=== PATIENT | female | born 1940 | race Caucasian/White ===

== ENCOUNTER 2019-04-12 11:15 | Inpatient (IN) | payer MEDICARE, OTHER ==
[2019-04-12] MEDS ORDERED: ONDANSETRON 4 MG INJ IV (12:30)
[2019-04-12] MEDS: ACETAMINOPHEN 650MG/20.3ML CUP GTB (12:47)
[2019-04-12] MEDS ORDERED: ARTIFICIAL TEARS 15 ML OPH BOTH EYES (13:00)
[2019-04-12] MEDS ORDERED: GLUCOSE GEL 15 GRAM TUBE BUCCAL (13:00)
[2019-04-12] MEDS ORDERED: GLUCAGON 1 MG INJ IM (13:00)
[2019-04-12] MEDS ORDERED: GLUCOSE GEL 15 GRAM TUBE PO ×2 (13:00)
[2019-04-12] MEDS ORDERED: DEXTROSE 50% 50 ML SYRINGE IV ×2 (13:00)
[2019-04-12] MEDS ORDERED: VANCOMYCIN IV PER PHARMACY XX (13:00)
[2019-04-12 13:55] LABS: ADD MAN DIFF? NO
[2019-04-12 13:59] LABS: ABNORMAL IP MESSAGE 1; BASOPHILS % 0.2 % (0.0-2.0); EOSINOPHILS % 0.1 % (0.0-7.0); HEMOGLOBIN 8.4 g/dl (12.0-16.0); LYMPHOCYTES # 1.4 10^3/ul (0.8-2.9); LYMPHOCYTES % 16.9 % (15.0-51.0); MEAN CORPUSCULAR HEMOGLOBIN 30.4 pg (29.0-33.0); MEAN CORPUSCULAR HGB CONC 31.1 g/dl (32.0-37.0); MEAN CORPUSCULAR VOLUME 97.8 fl (82.0-101.0); MEAN PLATELET VOLUME 11.8 fl (7.4-10.4); MONOCYTE # 0.5 10^3/ul (0.3-0.9); MONOCYTES % 6.1 % (0.0-11.0); NEUTROPHIL # 6.2 10^3/ul (1.6-7.5); NEUTROPHILS % 75.2 % (39.0-77.0); PLATELET COUNT 95 10^3/UL (140-415); RED BLOOD COUNT 2.76 10^6/ul (4.20-5.40); RED CELL DISTRIBUTION WIDTH 20.1 % (11.5-14.5)
[2019-04-12 13:59] LABS: WHITE BLOOD COUNT 8.2 10^3/ul (4.8-10.8)
[2019-04-12] MEDS ORDERED: VANCOMYCIN HCL 250 MG/5ML POSYG PO (14:00)
[2019-04-12] MEDS: NYSTATIN SUSP 5 ML CUP GTB ×3 (14:01→20:44)
[2019-04-12 14:05] LABS: POSITIVE DIFF @See below
[2019-04-12 14:18] LABS: INR 1.05; PROTIME 13.8 Sec (11.9-14.9); PT RATIO 1.1
[2019-04-12 14:19] LABS: PARTIAL THROMBOPLASTIN TIME 26.8 Sec (23.0-35.0)
[2019-04-12] MEDS: INSULIN ASPART [NOVOLOG] 3 ML PEN SC ×3 (14:38→20:47)
[2019-04-12] MEDS: GABAPENTIN (50 MG/ML PO SYG) GTB ×2 (14:39→22:03)
[2019-04-12 14:49] LABS: ANISOCYTOSIS 2+ (0-0); BAND NEUTROPHILS #M 1.7 10^3/ul (0.0-0.6); BAND NEUTROPHILS % (M) 21 % (0-4); GIANT THROMBO% (M) 2 % (0-0); LYMPHOCYTES #M 1.4 10^3/ul (0.8-2.9); LYMPHOCYTES % (M) 18 % (15-51); MICROCYTOSIS 2+ (0-0); MONOCYTE #M 0.1 10^3/ul (0.3-0.9); MONOCYTES % (M) 2 % (0-11); MYELOCYTES % (M) 1 % (0-0); PLATELET ESTIMATE DECREASED; POIKILOCYTOSIS 1+ (0-0); POLYCHROMASIA 3+ (0-0); SEG NEUT #M 4.9 10^3/ul (1.6-7.5); SEGMENTED NEUTROPHILS (M) % 58 % (39-77); SMUDGE%M 9 % (0-0)
[2019-04-12] MEDS: LANSOPRAZOLE 30 MG CAP GTB (18:06)
[2019-04-12] MEDS: VANCOMYCIN HCL 250 MG/5ML POSYG GTB (18:07)
[2019-04-12] MEDS: traMADol 50 MG TAB PO (18:09)
[2019-04-12] MEDS: COLISTIMETHATE (25 MG/ML INHAL SYG) NEB (20:19)
[2019-04-12] MEDS: BALSAM PERU/CASTOR OIL 60 GM TUBE TOP (20:43)
[2019-04-12] MEDS: MUPIROCIN 2% 22 GM OINT TOP (20:43)
[2019-04-12] MEDS: NYSTATIN 30 GM POWDER BTL TOP (20:44)
[2019-04-12] MEDS: HYDROCORTISONE 5 MG TAB GTB (20:44)
[2019-04-12] MEDS: L ACIDOPHIL/B LACTIS/B LONGUM CAPSULE GTB (20:44)
[2019-04-12] MEDS: DOCUSATE SODIUM 10 MG/ML (10ML CUP) GTB ×2 (20:44→20:49)
[2019-04-12] MEDS: ATORVASTATIN 40 MG TAB GTB (20:45)
[2019-04-12] MEDS: HYDROXYCHLOROQUINE 200 MG TAB GTB (20:45)
[2019-04-12] MEDS: INSULIN GLARGINE [LANTus] (100 UNITS/ML) SYG SC (20:46)
[2019-04-13] MEDS: VANCOMYCIN HCL 250 MG/5ML POSYG GTB ×4 (00:26→18:26)
[2019-04-13] MEDS: INSULIN ASPART [NOVOLOG] 3 ML PEN SC ×6 (00:31→21:00)
[2019-04-13] MEDS: GABAPENTIN (50 MG/ML PO SYG) GTB ×3 (06:06→21:28)
[2019-04-13] MEDS: LANSOPRAZOLE 30 MG CAP GTB ×2 (06:06→18:26)
[2019-04-13] MEDS: FUROSEMIDE 40 MG INJ IV (06:06)
[2019-04-13 08:41] LABS: ADD MAN DIFF? NO
[2019-04-13 08:56] LABS: AADO2 Arterial 175.7 mmHg (7.0-24.0); Allen Test ACCEPTAB; Arterial Base Excess 0.2 mmol/L (-3.0-3); Arterial Blood Gas Oxygen Sat 93.8 mmHG (95.0-100.0); Arterial COHb 0.3 % (0.0-3.0); Arterial Fraction of Oxyhgb 93.2 % (93.0-99.0); Arterial HCO3 24.2 mmol/L (22.0-26.0); Arterial MetHb 0.3 % (0.0-1.5); Arterial pCO2 36.5 mmhg (35-45); MODE VENT - AC; Site Left Radial
[2019-04-13] MEDS: DOCUSATE SODIUM 10 MG/ML (10ML CUP) GTB ×2 (08:58→21:23)
[2019-04-13] MEDS ORDERED: VANCOMYCIN HCL 1.5 GM in SOD CHLORIDE 0.9% 250 ML IVPB (09:00)
[2019-04-13] MEDS: L ACIDOPHIL/B LACTIS/B LONGUM CAPSULE GTB ×2 (09:00→21:23)
[2019-04-13] MEDS: HYDROXYCHLOROQUINE 200 MG TAB GTB ×2 (09:00→21:23)
[2019-04-13 09:08] LABS: ANION GAP 8 (5-13); BLOOD UREA NITROGEN 42 mg/dl (7-20); CALCIUM 9.2 mg/dl (8.4-10.2); CARBON DIOXIDE 22 mmol/L (21-31); CHLORIDE 107 mmol/L (97-110); CREATININE 0.82 mg/dl (0.44-1.00); GLUCOSE 157 mg/dl (70-220); MAGNESIUM 1.9 mg/dl (1.7-2.5); PHOSPHORUS 3.7 mg/dl (2.5-4.9); POTASSIUM 4.6 mmol/L (3.5-5.1); SODIUM 137 mmol/L (135-144)
[2019-04-13] MEDS: SERTRALINE 50 MG TAB GTB (09:09)
[2019-04-13] MEDS: NYSTATIN SUSP 5 ML CUP GTB ×4 (09:09→21:23)
[2019-04-13] MEDS: AMLODIPINE 5 MG TAB GTB (09:09)
[2019-04-13 09:10] LABS: VANCOMYCIN,TROUGH 30.7 ug/ml (10.0-20.0)
[2019-04-13] MEDS: HYDROCORTISONE 20 MG TAB GTB (09:10)
[2019-04-13] MEDS: POTASSIUM CHLORIDE 20 MEQ POWDER FOR ORAL SOLN GTB (09:10)
[2019-04-13] MEDS: MUPIROCIN 2% 22 GM OINT TOP ×2 (09:11→21:29)
[2019-04-13] MEDS: NYSTATIN 30 GM POWDER BTL TOP (09:12)
[2019-04-13] MEDS: BALSAM PERU/CASTOR OIL 60 GM TUBE TOP ×2 (09:12→21:29)
[2019-04-13] MEDS: LIDOCAINE 5% PATCH TD (09:13)
[2019-04-13 09:38] LABS: ABNORMAL IP MESSAGE 1; BASOPHILS % 0.3 % (0.0-2.0); EOSINOPHILS % 0.1 % (0.0-7.0); HEMATOCRIT 28.8 % (37.0-47.0); HEMOGLOBIN 8.9 g/dl (12.0-16.0); LYMPHOCYTES # 2.2 10^3/ul (0.8-2.9); LYMPHOCYTES % 28.9 % (15.0-51.0); MEAN CORPUSCULAR HEMOGLOBIN 30.5 pg (29.0-33.0); MEAN CORPUSCULAR HGB CONC 30.9 g/dl (32.0-37.0); MEAN CORPUSCULAR VOLUME 98.6 fl (82.0-101.0); MEAN PLATELET VOLUME 11.5 fl (7.4-10.4); MONOCYTE # 0.5 10^3/ul (0.3-0.9); NEUTROPHIL # 4.8 10^3/ul (1.6-7.5); NEUTROPHILS % 62.4 % (39.0-77.0); PLATELET COUNT 90 10^3/UL (140-415); RED BLOOD COUNT 2.92 10^6/ul (4.20-5.40); RED CELL DISTRIBUTION WIDTH 19.9 % (11.5-14.5)
[2019-04-13 09:38] LABS: WHITE BLOOD COUNT 7.7 10^3/ul (4.8-10.8)
[2019-04-13 09:40] LABS: POSITIVE DIFF @See below
[2019-04-13] MEDS: COLISTIMETHATE (25 MG/ML INHAL SYG) NEB ×2 (09:41→19:15)
[2019-04-13 10:22] LABS: ADD UMIC YES; UR ASCORBIC ACID 40 mg/dL (NEGATIVE); UR BACTERIA FEW /HPF (NONE SEEN); UR BILIRUBIN (Dip) NEGATIVE (NEGATIVE); UR BLOOD (Dip) NEGATIVE (NEGATIVE); UR BUDDING YEAST MANY /HPF (NONE SEEN); UR CLARITY SLIGHTLY CLOUDY (CLEAR); UR COLOR YELLOW (YELLOW); UR GLUCOSE (Dip) NEGATIVE (NEGATIVE); UR GRANULAR CAST FEW /HPF (NONE SEEN); UR KETONES (Dip) NEGATIVE (NEGATIVE); UR LEUKOCYTE ESTERASE (Dip) 1+ Leu/ul (NEGATIVE); UR MUCUS FEW /HPF (NONE SEEN); UR NITRITE (Dip) NEGATIVE (NEGATIVE); UR RBC 11 /HPF (0-5); UR SPECIFIC GRAVITY (Dip) 1.018 (1.003-1.030); UR TOTAL PROTEIN (Dip) NEGATIVE (NEGATIVE); UR UROBILINOGEN (Dip) NEGATIVE (NEGATIVE); UR WBC 32 /HPF (0-5)
[2019-04-13] MEDS: traMADol 50 MG TAB PO (11:48)
[2019-04-13] MEDS: FLUCONAZOLE 100 MG TAB PO (14:51)
[2019-04-13] MEDS ORDERED: INSULIN GLARGINE [LANTus] (100 UNITS/ML) SYG SC (15:00)
[2019-04-13] MEDS: HYDROCODONE/APAP (10/325) TAB GTB (15:20)
[2019-04-13] MEDS ORDERED: MAGNESIUM HYDROXIDE 30ML CUP PO (21:00)
[2019-04-13] MEDS: PROPOFOL 100 ML IV (21:22)
[2019-04-13] MEDS: ATORVASTATIN 40 MG TAB GTB (21:23)
[2019-04-13] MEDS: HYDROCORTISONE 5 MG TAB GTB (21:23)
[2019-04-13] MEDS: INSULIN GLARGINE [LANTus] (100 UNITS/ML) SYG SC (21:25)
[2019-04-14] MEDS: NYSTATIN 30 GM POWDER BTL TOP ×3 (00:01→20:22)
[2019-04-14] MEDS: PROPOFOL 100 ML IV ×3 (00:13→09:05)
[2019-04-14] MEDS: INSULIN ASPART [NOVOLOG] 3 ML PEN SC ×6 (01:00→21:00)
[2019-04-14 05:31] LABS: MEAN CORPUSCULAR HEMOGLOBIN 30.5 pg (29.0-33.0); MEAN CORPUSCULAR HGB CONC 30.8 g/dl (32.0-37.0); MEAN CORPUSCULAR VOLUME 99.2 fl (82.0-101.0); MEAN PLATELET VOLUME 11.4 fl (7.4-10.4); PLATELET COUNT 105 10^3/UL (140-415); RED BLOOD COUNT 2.62 10^6/ul (4.20-5.40); RED CELL DISTRIBUTION WIDTH 20.7 % (11.5-14.5)
[2019-04-14 05:31] LABS: WHITE BLOOD COUNT 8.7 10^3/ul (4.8-10.8)
[2019-04-14 05:33] LABS: AADO2 Arterial 180.9 mmHg (7.0-24.0); Allen Test ACCEPTAB; Arterial Base Excess -0.7 mmol/L (-3.0-3); Arterial Blood Gas Oxygen Sat 92.8 mmHG (95.0-100.0); Arterial COHb 0.3 % (0.0-3.0); Arterial Fraction of Oxyhgb 92.2 % (93.0-99.0); Arterial HCO3 23.2 mmol/L (22.0-26.0); Arterial MetHb 0.3 % (0.0-1.5); Arterial pCO2 35.1 mmhg (35-45); MODE VENT - AC; Site Right Radial
[2019-04-14 05:35] LABS: ADD MAN DIFF? YES; POSITIVE DIFF @See below
[2019-04-14 05:58] LABS: LACTIC ACID 1.7 mmol/L (0.5-2.0); VANCOMYCIN,RANDOM 20.9 ug/ml
[2019-04-14 06:14] LABS: ANION GAP 4 (5-13); BLOOD UREA NITROGEN 46 mg/dl (7-20); CARBON DIOXIDE 27 mmol/L (21-31); CHLORIDE 106 mmol/L (97-110); CREATININE 1.13 mg/dl (0.44-1.00); GLUCOSE 106 mg/dl (70-220); MAGNESIUM 1.9 mg/dl (1.7-2.5); PHOSPHORUS 3.1 mg/dl (2.5-4.9); POTASSIUM 5.2 mmol/L (3.5-5.1); SODIUM 137 mmol/L (135-144)
[2019-04-14] MEDS: LANSOPRAZOLE 30 MG CAP GTB ×2 (06:27→18:31)
[2019-04-14] MEDS: FUROSEMIDE 40 MG INJ IV (06:27)
[2019-04-14] MEDS: GABAPENTIN (50 MG/ML PO SYG) GTB ×3 (06:36→21:27)
[2019-04-14] MEDS: VANCOMYCIN HCL 250 MG/5ML POSYG GTB ×4 (06:43→18:32)
[2019-04-14 08:00] LABS: ANISOCYTOSIS 1+ (0-0); BAND NEUTROPHILS #M 0.6 10^3/ul (0.0-0.6); BAND NEUTROPHILS % (M) 8 % (0-4); BURR CELLS 1+ (0-0); EOSINOPHILS % (M) 1 % (0-7); GIANT THROMBO% (M) 1 % (0-0); LYMPHOCYTES #M 1.6 10^3/ul (0.8-2.9); LYMPHOCYTES % (M) 19 % (15-51); MICROCYTOSIS 1+ (0-0); MONOCYTE #M 0.2 10^3/ul (0.3-0.9); MONOCYTES % (M) 3 % (0-11); PLATELET ESTIMATE DECREASED; POIKILOCYTOSIS 1+ (0-0); POLYCHROMASIA 1+ (0-0); REACTIVE LYMPHOCYTES #M 0.2 10^3/ul (0.0-0.0); REACTIVE LYMPHOCYTES% (M) 3 % (0-0); SEG NEUT #M 5.8 10^3/ul (1.6-7.5); SEGMENTED NEUTROPHILS (M) % 66 % (39-77); SMUDGE%M 14 % (0-0)
[2019-04-14] MEDS ORDERED: INSULIN GLARGINE [LANTus] (100 UNITS/ML) SYG SC (08:00)
[2019-04-14] MEDS: COLISTIMETHATE (25 MG/ML INHAL SYG) NEB ×2 (08:58→19:25)
[2019-04-14] MEDS: AMLODIPINE 5 MG TAB GTB (09:00)
[2019-04-14] MEDS: POTASSIUM CHLORIDE 20 MEQ POWDER FOR ORAL SOLN GTB (09:00)
[2019-04-14] MEDS: NYSTATIN SUSP 5 ML CUP GTB ×4 (09:05→20:21)
[2019-04-14] MEDS: DOCUSATE SODIUM 10 MG/ML (10ML CUP) GTB ×2 (09:05→20:21)
[2019-04-14] MEDS: SERTRALINE 50 MG TAB GTB (09:06)
[2019-04-14] MEDS: HYDROCORTISONE 20 MG TAB GTB (09:06)
[2019-04-14] MEDS: FLUCONAZOLE 100 MG TAB PO (09:06)
[2019-04-14] MEDS: MUPIROCIN 2% 22 GM OINT TOP ×2 (09:07→20:22)
[2019-04-14] MEDS: BALSAM PERU/CASTOR OIL 60 GM TUBE TOP ×2 (09:07→20:22)
[2019-04-14] MEDS: HYDROXYCHLOROQUINE 200 MG TAB GTB ×2 (09:07→20:34)
[2019-04-14] MEDS: LIDOCAINE 5% PATCH TD (09:08)
[2019-04-14] MEDS: L ACIDOPHIL/B LACTIS/B LONGUM CAPSULE GTB ×2 (10:54→20:21)
[2019-04-14] MEDS ORDERED: NORepinephrine 8MG/250 ML (PMX 250 ML IV (11:30)
[2019-04-14] MEDS: SOD CHLORIDE 0.9% 1,000 ML IV ×3 (11:50→21:46)
[2019-04-14] MEDS ORDERED: NA POLYST SULFON 15 GM/60 ML BTL GTB (12:00)
[2019-04-14] MEDS: SODIUM POLYSTYRENE 15 GM KIT (POWDER + SORBITOL) GTB (14:00)
[2019-04-14 14:09] LABS: ADD UMIC YES; UR ASCORBIC ACID 20 mg/dL (NEGATIVE); UR BACTERIA FEW /HPF (NONE SEEN); UR BILIRUBIN (Dip) NEGATIVE (NEGATIVE); UR BLOOD (Dip) 1+ mg/dL (NEGATIVE); UR CLARITY SLIGHTLY CLOUDY (CLEAR); UR COLOR YELLOW (YELLOW); UR GLUCOSE (Dip) NEGATIVE (NEGATIVE); UR KETONES (Dip) NEGATIVE (NEGATIVE); UR LEUKOCYTE ESTERASE (Dip) TRACE Leu/ul (NEGATIVE); UR NITRITE (Dip) NEGATIVE (NEGATIVE); UR RBC 25 /HPF (0-5); UR SPECIFIC GRAVITY (Dip) 1.011 (1.003-1.030); UR TOTAL PROTEIN (Dip) NEGATIVE (NEGATIVE); UR UROBILINOGEN (Dip) NEGATIVE (NEGATIVE); UR WBC 8 /HPF (0-5)
[2019-04-14 14:17] LABS: SODIUM,URINE RANDOM 44 mmol/L (30-90)
[2019-04-14 14:17] LABS: CREATININE,URINE RANDOM 34.77 mg/dl (20-320)
[2019-04-14] MEDS: INSULIN GLARGINE [LANTus] (100 UNITS/ML) SYG SC (20:20)
[2019-04-14] MEDS: ATORVASTATIN 40 MG TAB GTB (20:21)
[2019-04-14] MEDS: HYDROCORTISONE 5 MG TAB GTB (20:34)
[2019-04-14] MEDS ORDERED: MUPIROCIN 2% 22 GM OINT TOP (21:00)
[2019-04-15] MEDS: INSULIN ASPART [NOVOLOG] 3 ML PEN SC ×6 (01:51→21:00)
[2019-04-15] MEDS: VANCOMYCIN HCL 250 MG/5ML POSYG GTB ×4 (01:51→18:39)
[2019-04-15 05:34] LABS: HEMATOCRIT 23.6 % (37.0-47.0); HEMOGLOBIN 7.5 g/dl (12.0-16.0); MEAN CORPUSCULAR HEMOGLOBIN 31.1 pg (29.0-33.0); MEAN CORPUSCULAR HGB CONC 31.8 g/dl (32.0-37.0); MEAN CORPUSCULAR VOLUME 97.9 fl (82.0-101.0); MEAN PLATELET VOLUME 10.9 fl (7.4-10.4); PLATELET COUNT 112 10^3/UL (140-415); RED BLOOD COUNT 2.41 10^6/ul (4.20-5.40); RED CELL DISTRIBUTION WIDTH 20.4 % (11.5-14.5)
[2019-04-15 05:34] LABS: WHITE BLOOD COUNT 8.3 10^3/ul (4.8-10.8)
[2019-04-15 05:42] LABS: ADD MAN DIFF? YES; POSITIVE DIFF @See below
[2019-04-15] MEDS: GABAPENTIN (50 MG/ML PO SYG) GTB ×3 (05:47→21:01)
[2019-04-15] MEDS: LANSOPRAZOLE 30 MG CAP GTB ×2 (05:47→18:00)
[2019-04-15 05:59] LABS: ANION GAP 7 (5-13)
[2019-04-15 06:00] LABS: BLOOD UREA NITROGEN 46 mg/dl (7-20); CALCIUM 8.3 mg/dl (8.4-10.2); CARBON DIOXIDE 24 mmol/L (21-31); CHLORIDE 107 mmol/L (97-110); CREATININE 1.01 mg/dl (0.44-1.00); GLUCOSE 122 mg/dl (70-220); MAGNESIUM 1.8 mg/dl (1.7-2.5); PHOSPHORUS 3.7 mg/dl (2.5-4.9); SODIUM 138 mmol/L (135-144)
[2019-04-15 06:01] LABS: POTASSIUM 3.8 mmol/L (3.5-5.1)
[2019-04-15 07:20] LABS: ANISOCYTOSIS 1+ (0-0); BURR CELLS 1+ (0-0); GIANT THROMBO% (M) 4 % (0-0); LYMPHOCYTES #M 2.4 10^3/ul (0.8-2.9); LYMPHOCYTES % (M) 30 % (15-51); MONOCYTE #M 0.1 10^3/ul (0.3-0.9); MONOCYTES % (M) 2 % (0-11); PLATELET ESTIMATE DECREASED; POIKILOCYTOSIS 1+ (0-0); POLYCHROMASIA 1+ (0-0); SEGMENTED NEUTROPHILS (M) % 68 % (39-77); SMUDGE%M 10 % (0-0); TOXIC GRANULATION 1+ (0-0)
[2019-04-15] MEDS: FLUCONAZOLE 100 MG TAB PO (08:08)
[2019-04-15] MEDS: DOCUSATE SODIUM 10 MG/ML (10ML CUP) GTB ×2 (08:08→20:57)
[2019-04-15] MEDS: HYDROXYCHLOROQUINE 200 MG TAB GTB ×2 (08:08→20:55)
[2019-04-15] MEDS: HYDROCORTISONE 20 MG TAB GTB (08:08)
[2019-04-15] MEDS: SERTRALINE 50 MG TAB GTB (08:08)
[2019-04-15] MEDS: POTASSIUM CHLORIDE 20 MEQ POWDER FOR ORAL SOLN GTB (08:09)
[2019-04-15] MEDS: MUPIROCIN 2% 22 GM OINT TOP ×2 (08:09→20:56)
[2019-04-15] MEDS: BALSAM PERU/CASTOR OIL 60 GM TUBE TOP ×2 (08:09→20:56)
[2019-04-15] MEDS: NYSTATIN 30 GM POWDER BTL TOP ×2 (08:10→20:56)
[2019-04-15] MEDS: NYSTATIN SUSP 5 ML CUP GTB ×4 (08:10→20:55)
[2019-04-15] MEDS: L ACIDOPHIL/B LACTIS/B LONGUM CAPSULE GTB ×2 (08:15→20:55)
[2019-04-15] MEDS: COLISTIMETHATE (25 MG/ML INHAL SYG) NEB ×2 (09:51→21:14)
[2019-04-15] MEDS: LORAZEPAM 2 MG INJ IV ×2 (11:05→22:30)
[2019-04-15] MEDS: VANCOMYCIN HCL 1.5 GM in SOD CHLORIDE 0.9% 250 ML IVPB (13:08)
[2019-04-15] MEDS: SOD CHLORIDE 0.9% 1,000 ML IV (18:40)
[2019-04-15] MEDS: PROPOFOL 100 ML IV (20:00)
[2019-04-15] MEDS: ATORVASTATIN 40 MG TAB GTB (20:55)
[2019-04-15] MEDS: HYDROCORTISONE 5 MG TAB GTB (20:55)
[2019-04-15] MEDS: LIDOCAINE 5% PATCH TD (21:09)
[2019-04-15] MEDS: INSULIN GLARGINE [LANTus] (100 UNITS/ML) SYG SC (21:15)
[2019-04-16] MEDS: INSULIN ASPART [NOVOLOG] 3 ML PEN SC ×6 (00:25→20:35)
[2019-04-16] MEDS: VANCOMYCIN HCL 250 MG/5ML POSYG GTB ×5 (00:26→23:59)
[2019-04-16] MEDS: LORAZEPAM 2 MG INJ IV ×3 (03:35→21:28)
[2019-04-16] MEDS: LANSOPRAZOLE 30 MG CAP GTB ×2 (05:35→18:01)
[2019-04-16] MEDS: GABAPENTIN (50 MG/ML PO SYG) GTB ×3 (05:35→20:39)
[2019-04-16 05:42] LABS: ADD MAN DIFF? NO
[2019-04-16 05:45] LABS: WHITE BLOOD COUNT 7.6 10^3/ul (4.8-10.8)
[2019-04-16 05:45] LABS: BASOPHILS % 0.4 % (0.0-2.0); EOSINOPHILS % 0.1 % (0.0-7.0); HEMATOCRIT 23.7 % (37.0-47.0); HEMOGLOBIN 7.4 g/dl (12.0-16.0); LYMPHOCYTES # 1.7 10^3/ul (0.8-2.9); LYMPHOCYTES % 21.7 % (15.0-51.0); MEAN CORPUSCULAR HEMOGLOBIN 30.7 pg (29.0-33.0); MEAN CORPUSCULAR HGB CONC 31.2 g/dl (32.0-37.0); MEAN CORPUSCULAR VOLUME 98.3 fl (82.0-101.0); MEAN PLATELET VOLUME 10.7 fl (7.4-10.4); MONOCYTE # 0.4 10^3/ul (0.3-0.9); MONOCYTES % 5.1 % (0.0-11.0); NEUTROPHIL # 5.2 10^3/ul (1.6-7.5); NEUTROPHILS % 68.2 % (39.0-77.0); PLATELET COUNT 130 10^3/UL (140-415); RED BLOOD COUNT 2.41 10^6/ul (4.20-5.40); RED CELL DISTRIBUTION WIDTH 20.1 % (11.5-14.5)
[2019-04-16 06:24] LABS: RETICULOCYTE COUNT # 0.105 X10^6 (0.020-0.110); RETICULOCYTE COUNT % 4.3 % (0.5-1.5)
[2019-04-16 06:24] LABS: RETICULOCYTE RBC 2.48
[2019-04-16 06:32] LABS: ANION GAP 7 (5-13); BLOOD UREA NITROGEN 37 mg/dl (7-20); CALCIUM 8.6 mg/dl (8.4-10.2); CARBON DIOXIDE 21 mmol/L (21-31); CHLORIDE 111 mmol/L (97-110); CREATININE 0.89 mg/dl (0.44-1.00); GLUCOSE 156 mg/dl (70-220); MAGNESIUM 1.7 mg/dl (1.7-2.5); PHOSPHORUS 3.5 mg/dl (2.5-4.9); POTASSIUM 4.1 mmol/L (3.5-5.1); SODIUM 139 mmol/L (135-144)
[2019-04-16 06:33] LABS: BILIRUBIN,INDIRECT 0.6 mg/dl (0-1.1); BILIRUBIN,TOTAL 0.6 mg/dl (0.2-1.3)
[2019-04-16 06:33] LABS: LACTATE DEHYDROGENASE 899 IU/L (313-618)
[2019-04-16] MEDS: SOD CHLORIDE 0.9% 1,000 ML IV (06:34)
[2019-04-16] MEDS: PROPOFOL 100 ML IV ×2 (08:00→20:00)
[2019-04-16] MEDS: MUPIROCIN 2% 22 GM OINT TOP ×2 (08:36→20:37)
[2019-04-16] MEDS: BALSAM PERU/CASTOR OIL 60 GM TUBE TOP ×2 (08:36→20:37)
[2019-04-16] MEDS: NYSTATIN 30 GM POWDER BTL TOP ×2 (08:36→20:37)
[2019-04-16] MEDS: POTASSIUM CHLORIDE 20 MEQ POWDER FOR ORAL SOLN GTB (08:59)
[2019-04-16] MEDS: HYDROCORTISONE 20 MG TAB GTB (08:59)
[2019-04-16] MEDS: DOCUSATE SODIUM 10 MG/ML (10ML CUP) GTB ×2 (08:59→20:36)
[2019-04-16] MEDS: FLUCONAZOLE 100 MG TAB PO (08:59)
[2019-04-16] MEDS: SERTRALINE 50 MG TAB GTB (08:59)
[2019-04-16] MEDS: HYDROXYCHLOROQUINE 200 MG TAB GTB ×2 (08:59→20:20)
[2019-04-16] MEDS: L ACIDOPHIL/B LACTIS/B LONGUM CAPSULE GTB ×2 (09:10→20:20)
[2019-04-16] MEDS: LIDOCAINE 5% PATCH TD (09:11)
[2019-04-16] MEDS: COLISTIMETHATE (25 MG/ML INHAL SYG) NEB ×2 (09:35→19:56)
[2019-04-16] MEDS: NYSTATIN SUSP 5 ML CUP GTB ×4 (09:38→20:39)
[2019-04-16 10:09] LABS: IRON 48 ug/dl (35-150)
[2019-04-16 10:19] LABS: % IRON SATURATION 22 % SAT (22-52); TOTAL IRON BINDING CAPACITY 216 ug/dl (241-421)
[2019-04-16] MEDS: HYDROCODONE/APAP (10/325) TAB GTB (17:58)
[2019-04-16] MEDS: ATORVASTATIN 40 MG TAB GTB (20:20)
[2019-04-16] MEDS: HYDROCORTISONE 5 MG TAB GTB (20:20)
[2019-04-16] MEDS: INSULIN GLARGINE [LANTus] (100 UNITS/ML) SYG SC (20:36)
[2019-04-17] MEDS: INSULIN ASPART [NOVOLOG] 3 ML PEN SC ×6 (00:01→20:26)
[2019-04-17] MEDS: LANSOPRAZOLE 30 MG CAP GTB ×2 (05:15→18:12)
[2019-04-17] MEDS: GABAPENTIN (50 MG/ML PO SYG) GTB ×3 (05:15→20:25)
[2019-04-17 05:16] LABS: ABNORMAL IP MESSAGE 1; HEMATOCRIT 25.8 % (37.0-47.0); HEMOGLOBIN 7.8 g/dl (12.0-16.0); MEAN CORPUSCULAR HGB CONC 30.2 g/dl (32.0-37.0); MEAN CORPUSCULAR VOLUME 99.2 fl (82.0-101.0); MEAN PLATELET VOLUME 11.7 fl (7.4-10.4); NUCLEATED RED BLOOD CELLS% 0.3 /100WBC (0.0-0.0); PLATELET COUNT 65 10^3/UL (140-415); RED CELL DISTRIBUTION WIDTH 20.6 % (11.5-14.5)
[2019-04-17 05:16] LABS: WHITE BLOOD COUNT 7.8 10^3/ul (4.8-10.8)
[2019-04-17] MEDS: VANCOMYCIN HCL 250 MG/5ML POSYG GTB ×3 (05:19→18:32)
[2019-04-17 05:23] LABS: ADD MAN DIFF? YES; POSITIVE DIFF @See below
[2019-04-17 05:57] LABS: ANION GAP 4 (5-13); BLOOD UREA NITROGEN 34 mg/dl (7-20); CALCIUM 9.1 mg/dl (8.4-10.2); CARBON DIOXIDE 23 mmol/L (21-31); CHLORIDE 111 mmol/L (97-110); CREATININE 0.79 mg/dl (0.44-1.00); GLUCOSE 129 mg/dl (70-220); MAGNESIUM 1.8 mg/dl (1.7-2.5); PHOSPHORUS 3.7 mg/dl (2.5-4.9); SODIUM 138 mmol/L (135-144)
[2019-04-17] MEDS: PROPOFOL 100 ML IV ×2 (08:00→20:00)
[2019-04-17] MEDS: DOCUSATE SODIUM 10 MG/ML (10ML CUP) GTB ×2 (09:00→20:26)
[2019-04-17] MEDS: HYDROCORTISONE 20 MG TAB GTB (09:19)
[2019-04-17] MEDS: HYDROXYCHLOROQUINE 200 MG TAB GTB ×2 (09:20→20:25)
[2019-04-17] MEDS: POTASSIUM CHLORIDE 20 MEQ POWDER FOR ORAL SOLN GTB (09:20)
[2019-04-17] MEDS: FLUCONAZOLE 100 MG TAB PO (09:20)
[2019-04-17] MEDS: SERTRALINE 50 MG TAB GTB (09:20)
[2019-04-17] MEDS: NYSTATIN SUSP 5 ML CUP GTB ×4 (09:20→20:25)
[2019-04-17] MEDS: L ACIDOPHIL/B LACTIS/B LONGUM CAPSULE GTB ×2 (09:20→20:25)
[2019-04-17] MEDS: MUPIROCIN 2% 22 GM OINT TOP ×2 (09:21→20:24)
[2019-04-17] MEDS: BALSAM PERU/CASTOR OIL 60 GM TUBE TOP ×2 (09:21→20:24)
[2019-04-17] MEDS: NYSTATIN 30 GM POWDER BTL TOP ×2 (09:21→20:25)
[2019-04-17] MEDS: LIDOCAINE 5% PATCH TD (09:23)
[2019-04-17] MEDS: traMADol 50 MG TAB PO (10:21)
[2019-04-17] MEDS: COLISTIMETHATE (25 MG/ML INHAL SYG) NEB ×2 (10:36→19:32)
[2019-04-17] MEDS: LORAZEPAM 2 MG INJ IV ×2 (12:36→21:04)
[2019-04-17] MEDS: VANCOMYCIN HCL 1.5 GM in SOD CHLORIDE 0.9% 250 ML IVPB (12:36)
[2019-04-17 17:16] LABS: HAPTOGLOBIN 247 mg/dL (43-212)
[2019-04-17] MEDS: HYDROCORTISONE 5 MG TAB GTB (20:25)
[2019-04-17] MEDS: ATORVASTATIN 40 MG TAB GTB (20:25)
[2019-04-17] MEDS: INSULIN GLARGINE [LANTus] (100 UNITS/ML) SYG SC (20:34)
[2019-04-18] MEDS: INSULIN ASPART [NOVOLOG] 3 ML PEN SC ×6 (00:29→20:20)
[2019-04-18] MEDS: VANCOMYCIN HCL 250 MG/5ML POSYG GTB ×5 (00:30→23:58)
[2019-04-18] MEDS: GABAPENTIN (50 MG/ML PO SYG) GTB ×3 (05:04→21:38)
[2019-04-18] MEDS: LANSOPRAZOLE 30 MG CAP GTB ×2 (05:04→16:59)
[2019-04-18 06:03] LABS: ABNORMAL IP MESSAGE 1; HEMATOCRIT 26.2 % (37.0-47.0); HEMOGLOBIN 7.9 g/dl (12.0-16.0); MEAN CORPUSCULAR HEMOGLOBIN 30.4 pg (29.0-33.0); MEAN CORPUSCULAR HGB CONC 30.2 g/dl (32.0-37.0); MEAN CORPUSCULAR VOLUME 100.8 fl (82.0-101.0); MEAN PLATELET VOLUME 11.3 fl (7.4-10.4); PLATELET COUNT 124 10^3/UL (140-415); RED CELL DISTRIBUTION WIDTH 21.1 % (11.5-14.5)
[2019-04-18 06:18] LABS: INR 1.03; PROTIME 13.6 Sec (11.9-14.9); PT RATIO 1.1
[2019-04-18 06:20] LABS: ADD MAN DIFF? YES; POSITIVE DIFF @See below
[2019-04-18 06:23] LABS: ANION GAP 6 (5-13); BLOOD UREA NITROGEN 30 mg/dl (7-20); CALCIUM 9.3 mg/dl (8.4-10.2); CARBON DIOXIDE 21 mmol/L (21-31); CHLORIDE 111 mmol/L (97-110); CREATININE 0.78 mg/dl (0.44-1.00); GLUCOSE 132 mg/dl (70-220); MAGNESIUM 1.7 mg/dl (1.7-2.5); PHOSPHORUS 3.9 mg/dl (2.5-4.9); POTASSIUM 4.7 mmol/L (3.5-5.1); SODIUM 138 mmol/L (135-144)
[2019-04-18] MEDS: PROPOFOL 100 ML IV ×2 (07:38→19:00)
[2019-04-18] MEDS: FLUCONAZOLE 100 MG TAB PO (08:12)
[2019-04-18] MEDS: NYSTATIN SUSP 5 ML CUP GTB ×4 (08:12→20:19)
[2019-04-18] MEDS: DOCUSATE SODIUM 10 MG/ML (10ML CUP) GTB ×2 (08:12→20:19)
[2019-04-18] MEDS: L ACIDOPHIL/B LACTIS/B LONGUM CAPSULE GTB ×2 (08:12→20:18)
[2019-04-18] MEDS: SERTRALINE 50 MG TAB GTB (08:13)
[2019-04-18] MEDS: POTASSIUM CHLORIDE 20 MEQ POWDER FOR ORAL SOLN GTB (08:14)
[2019-04-18] MEDS: LIDOCAINE 5% PATCH TD (08:14)
[2019-04-18] MEDS: MUPIROCIN 2% 22 GM OINT TOP ×2 (08:14→20:20)
[2019-04-18] MEDS: BALSAM PERU/CASTOR OIL 60 GM TUBE TOP ×2 (08:15→20:19)
[2019-04-18] MEDS: NYSTATIN 30 GM POWDER BTL TOP ×2 (08:15→20:19)
[2019-04-18] MEDS: HYDROCORTISONE 20 MG TAB GTB (08:34)
[2019-04-18] MEDS: HYDROXYCHLOROQUINE 200 MG TAB GTB ×2 (08:35→20:19)
[2019-04-18] MEDS: LORAZEPAM 2 MG INJ IV (08:48)
[2019-04-18] MEDS: HYDROCODONE/APAP (10/325) TAB GTB ×2 (09:41→17:56)
[2019-04-18 09:45] LABS: ANISOCYTOSIS 2+ (0-0); BAND NEUTROPHILS #M 0.3 10^3/ul (0.0-0.6); BAND NEUTROPHILS % (M) 4 % (0-4); BURR CELLS 3+ (0-0); LYMPHOCYTES #M 1.8 10^3/ul (0.8-2.9); LYMPHOCYTES % (M) 20 % (15-51); METAMYELOCYTES #M 0.2 10^3/ul (0.0-0.0); METAMYELOCYTES %M 3 % (0-0); MICROCYTOSIS 1+ (0-0); MYELOCYTES #M 0.2 10^3/ul (0.0-0.0); MYELOCYTES % (M) 3 % (0-0); OVALOCYTES 1+ (0-0); PLATELET ESTIMATE NORMAL; POIKILOCYTOSIS 3+ (0-0); POLYCHROMASIA 2+ (0-0); REACTIVE LYMPHOCYTES #M 0.2 10^3/ul (0.0-0.0); REACTIVE LYMPHOCYTES% (M) 3 % (0-0); SEG NEUT #M 6.1 10^3/ul (1.6-7.5); SEGMENTED NEUTROPHILS (M) % 67 % (39-77); SMUDGE%M 3 % (0-0); SPHEROCYTES 1+ (0-0); TEAR DROP CELLS 1+ (0-0)
[2019-04-18] MEDS: COLISTIMETHATE (25 MG/ML INHAL SYG) NEB ×2 (10:26→19:26)
[2019-04-18] MEDS: MAGNESIUM SULFATE 2 GM/50 ML 50 ML IVPB (12:24)
[2019-04-18] MEDS: HYDROCORTISONE 5 MG TAB GTB (20:18)
[2019-04-18] MEDS: ATORVASTATIN 40 MG TAB GTB (20:18)
[2019-04-18] MEDS: INSULIN GLARGINE [LANTus] (100 UNITS/ML) SYG SC (20:21)
[2019-04-19] MEDS: INSULIN ASPART [NOVOLOG] 3 ML PEN SC ×6 (00:02→21:00)
[2019-04-19 05:23] LABS: ABNORMAL IP MESSAGE 1; HEMATOCRIT 28.2 % (37.0-47.0); HEMOGLOBIN 8.8 g/dl (12.0-16.0); MEAN CORPUSCULAR HGB CONC 31.2 g/dl (32.0-37.0); MEAN CORPUSCULAR VOLUME 99.3 fl (82.0-101.0); MEAN PLATELET VOLUME 10.5 fl (7.4-10.4); PLATELET COUNT 136 10^3/UL (140-415); RED BLOOD COUNT 2.84 10^6/ul (4.20-5.40)
[2019-04-19 05:23] LABS: WHITE BLOOD COUNT 11.7 10^3/ul (4.8-10.8)
[2019-04-19 05:25] LABS: POSITIVE DIFF @See below
[2019-04-19 05:26] LABS: ADD MAN DIFF? YES
[2019-04-19] MEDS: GABAPENTIN (50 MG/ML PO SYG) GTB ×3 (05:35→21:28)
[2019-04-19] MEDS: VANCOMYCIN HCL 250 MG/5ML POSYG GTB ×3 (05:35→18:51)
[2019-04-19] MEDS: LANSOPRAZOLE 30 MG CAP GTB ×2 (05:35→18:51)
[2019-04-19 05:52] LABS: ANION GAP 8 (5-13); BLOOD UREA NITROGEN 31 mg/dl (7-20); CALCIUM 9.5 mg/dl (8.4-10.2); CARBON DIOXIDE 20 mmol/L (21-31); CHLORIDE 111 mmol/L (97-110); CREATININE 0.78 mg/dl (0.44-1.00); GLUCOSE 96 mg/dl (70-220); POTASSIUM 5.8 mmol/L (3.5-5.1); SODIUM 139 mmol/L (135-144)
[2019-04-19 06:58] LABS: ANISOCYTOSIS 1+ (0-0); BAND NEUTROPHILS #M 0.2 10^3/ul (0.0-0.6); BAND NEUTROPHILS % (M) 2 % (0-4); BURR CELLS 1+ (0-0); ELLIPTO 1+ (0-0); GIANT THROMBO% (M) 2 % (0-0); LYMPHOCYTES #M 1.8 10^3/ul (0.8-2.9); LYMPHOCYTES % (M) 16 % (15-51); METAMYELOCYTES #M 0.1 10^3/ul (0.0-0.0); METAMYELOCYTES %M 1 % (0-0); MICROCYTOSIS 1+ (0-0); MONOCYTE #M 0.8 10^3/ul (0.3-0.9); MONOCYTES % (M) 7 % (0-11); MYELOCYTES #M 0.4 10^3/ul (0.0-0.0); MYELOCYTES % (M) 4 % (0-0); PLATELET ESTIMATE NORMAL; POIKILOCYTOSIS 1+ (0-0); POLYCHROMASIA 1+ (0-0); PROMYELOCYTES #M 0.2 10^3/ul (0-0); PROMYELOCYTES % (M) 2 % (0-0); SEGMENTED NEUTROPHILS (M) % 68 % (39-77); SMUDGE%M 2 % (0-0); TEAR DROP CELLS 1+ (0-0)
[2019-04-19] MEDS: DOCUSATE SODIUM 10 MG/ML (10ML CUP) GTB ×2 (09:00→20:59)
[2019-04-19] MEDS: BUMETANIDE 1 MG INJ IV (09:03)
[2019-04-19] MEDS: HYDROCORTISONE 20 MG TAB GTB (09:03)
[2019-04-19] MEDS: NYSTATIN SUSP 5 ML CUP GTB ×4 (09:04→20:59)
[2019-04-19] MEDS: SERTRALINE 50 MG TAB GTB (09:04)
[2019-04-19] MEDS: L ACIDOPHIL/B LACTIS/B LONGUM CAPSULE GTB ×2 (09:04→20:59)
[2019-04-19] MEDS: FLUCONAZOLE 100 MG TAB PO (09:04)
[2019-04-19] MEDS: HYDROXYCHLOROQUINE 200 MG TAB GTB ×2 (09:04→21:00)
[2019-04-19] MEDS: LIDOCAINE 5% PATCH TD (09:05)
[2019-04-19] MEDS: NYSTATIN 30 GM POWDER BTL TOP ×2 (09:06→21:01)
[2019-04-19] MEDS: BALSAM PERU/CASTOR OIL 60 GM TUBE TOP ×2 (09:06→21:02)
[2019-04-19] MEDS: MUPIROCIN 2% 22 GM OINT TOP ×2 (09:06→21:01)
[2019-04-19] MEDS: COLISTIMETHATE (25 MG/ML INHAL SYG) NEB ×2 (09:10→20:15)
[2019-04-19] MEDS: traMADol 50 MG TAB PO (09:23)
[2019-04-19] MEDS: LORAZEPAM 2 MG INJ IV (09:41)
[2019-04-19 11:24] LABS: ANION GAP 8 (5-13); BLOOD UREA NITROGEN 29 mg/dl (7-20); CALCIUM 9.6 mg/dl (8.4-10.2); CARBON DIOXIDE 21 mmol/L (21-31); CHLORIDE 107 mmol/L (97-110); CREATININE 0.83 mg/dl (0.44-1.00); GLUCOSE 110 mg/dl (70-220); SODIUM 136 mmol/L (135-144)
[2019-04-19 11:28] LABS: VANCOMYCIN,TROUGH 14.8 ug/ml (10.0-20.0)
[2019-04-19] MEDS: VANCOMYCIN HCL 1.5 GM in SOD CHLORIDE 0.9% 250 ML IVPB (12:38)
[2019-04-19] MEDS: EPOETIN ALFA-EPBX (NON-ESRD 10,000 UNIT/ML VIAL SC (18:53)
[2019-04-19] MEDS: INSULIN GLARGINE [LANTus] (100 UNITS/ML) SYG SC (20:59)
[2019-04-19] MEDS: HYDROCORTISONE 5 MG TAB GTB (21:00)
[2019-04-19] MEDS: ATORVASTATIN 40 MG TAB GTB (21:00)
[2019-04-20] MEDS: INSULIN ASPART [NOVOLOG] 3 ML PEN SC ×6 (00:19→21:00)
[2019-04-20] MEDS: VANCOMYCIN HCL 250 MG/5ML POSYG GTB ×4 (00:19→18:36)
[2019-04-20 06:25] LABS: WHITE BLOOD COUNT 12.7 10^3/ul (4.8-10.8)
[2019-04-20 06:25] LABS: ABNORMAL IP MESSAGE 1; HEMATOCRIT 26.6 % (37.0-47.0); HEMOGLOBIN 8.1 g/dl (12.0-16.0); MEAN CORPUSCULAR HEMOGLOBIN 30.2 pg (29.0-33.0); MEAN CORPUSCULAR HGB CONC 30.5 g/dl (32.0-37.0); MEAN CORPUSCULAR VOLUME 99.3 fl (82.0-101.0); MEAN PLATELET VOLUME 10.3 fl (7.4-10.4); NUCLEATED RED BLOOD CELLS% 0.2 /100WBC (0.0-0.0); PLATELET COUNT 150 10^3/UL (140-415); RED BLOOD COUNT 2.68 10^6/ul (4.20-5.40); RED CELL DISTRIBUTION WIDTH 20.9 % (11.5-14.5)
[2019-04-20 06:48] LABS: ADD MAN DIFF? YES; POSITIVE DIFF @See below
[2019-04-20 06:56] LABS: ANION GAP 7 (5-13); BLOOD UREA NITROGEN 33 mg/dl (7-20); CALCIUM 9.2 mg/dl (8.4-10.2); CARBON DIOXIDE 23 mmol/L (21-31); CHLORIDE 107 mmol/L (97-110); CREATININE 0.83 mg/dl (0.44-1.00); GLUCOSE 83 mg/dl (70-220); MAGNESIUM 1.8 mg/dl (1.7-2.5); PHOSPHORUS 4.9 mg/dl (2.5-4.9); POTASSIUM 4.5 mmol/L (3.5-5.1); SODIUM 137 mmol/L (135-144)
[2019-04-20] MEDS: LANSOPRAZOLE 30 MG CAP GTB ×2 (07:12→17:24)
[2019-04-20] MEDS: GABAPENTIN (50 MG/ML PO SYG) GTB ×2 (07:13→14:54)
[2019-04-20 09:12] LABS: ANISOCYTOSIS 1+ (0-0); BAND NEUTROPHILS #M 0.8 10^3/ul (0.0-0.6); BAND NEUTROPHILS % (M) 7 % (0-4); BURR CELLS 1+ (0-0); LYMPHOCYTES #M 2.5 10^3/ul (0.8-2.9); LYMPHOCYTES % (M) 20 % (15-51); METAMYELOCYTES #M 0.1 10^3/ul (0.0-0.0); METAMYELOCYTES %M 1 % (0-0); MICROCYTOSIS 1+ (0-0); MONOCYTES % (M) 8 % (0-11); MYELOCYTES #M 0.5 10^3/ul (0.0-0.0); MYELOCYTES % (M) 4 % (0-0); OVALOCYTES 1+ (0-0); PLATELET ESTIMATE NORMAL; POIKILOCYTOSIS 1+ (0-0); POLYCHROMASIA 1+ (0-0); SEG NEUT #M 7.7 10^3/ul (1.6-7.5); SEGMENTED NEUTROPHILS (M) % 60 % (39-77); SMUDGE%M 48 % (0-0)
[2019-04-20] MEDS: HYDROXYCHLOROQUINE 200 MG TAB GTB ×2 (09:19→22:21)
[2019-04-20] MEDS: ASCORBIC ACID 250 MG TAB GTB (09:19)
[2019-04-20] MEDS: L ACIDOPHIL/B LACTIS/B LONGUM CAPSULE GTB ×2 (09:19→22:21)
[2019-04-20] MEDS: HYDROCORTISONE 20 MG TAB GTB (09:19)
[2019-04-20] MEDS: FOLIC ACID 1 MG TAB GTB (09:19)
[2019-04-20] MEDS: DOCUSATE SODIUM 10 MG/ML (10ML CUP) GTB ×2 (09:19→22:21)
[2019-04-20] MEDS: FLUCONAZOLE 100 MG TAB PO (09:20)
[2019-04-20] MEDS: ZINC SULFATE 220 MG CAP GTB (09:20)
[2019-04-20] MEDS: LIDOCAINE 5% PATCH TD (09:20)
[2019-04-20] MEDS: SERTRALINE 50 MG TAB GTB (09:20)
[2019-04-20] MEDS: MUPIROCIN 2% 22 GM OINT TOP ×2 (09:21→22:22)
[2019-04-20] MEDS: NYSTATIN 30 GM POWDER BTL TOP ×2 (09:21→22:22)
[2019-04-20] MEDS: NYSTATIN SUSP 5 ML CUP GTB ×4 (09:23→22:21)
[2019-04-20] MEDS: LORAZEPAM 2 MG INJ IV ×2 (09:43→22:53)
[2019-04-20] MEDS: traMADol 50 MG TAB PO (09:46)
[2019-04-20] MEDS: COLISTIMETHATE (25 MG/ML INHAL SYG) NEB ×2 (09:51→19:31)
[2019-04-20] MEDS: BALSAM PERU/CASTOR OIL 60 GM TUBE TOP ×2 (09:59→22:23)
[2019-04-20] MEDS: HYDROCODONE/APAP (10/325) TAB GTB (14:45)
[2019-04-20] MEDS: HYDROCORTISONE 5 MG TAB GTB (22:21)
[2019-04-20] MEDS: ATORVASTATIN 40 MG TAB GTB (22:21)
[2019-04-21] MEDS: INSULIN GLARGINE [LANTus] (100 UNITS/ML) SYG SC ×2 (00:10→23:14)
[2019-04-21] MEDS: GABAPENTIN (50 MG/ML PO SYG) GTB ×4 (00:24→22:19)
[2019-04-21] MEDS: VANCOMYCIN HCL 250 MG/5ML POSYG GTB ×4 (03:52→17:27)
[2019-04-21] MEDS: INSULIN ASPART [NOVOLOG] 3 ML PEN SC ×6 (04:24→21:00)
[2019-04-21] MEDS: LANSOPRAZOLE 30 MG CAP GTB ×2 (06:23→17:23)
[2019-04-21 08:54] LABS: ANION GAP 7 (5-13); BLOOD UREA NITROGEN 31 mg/dl (7-20); CALCIUM 9.3 mg/dl (8.4-10.2); CARBON DIOXIDE 21 mmol/L (21-31); CHLORIDE 107 mmol/L (97-110); CREATININE 0.79 mg/dl (0.44-1.00); GLUCOSE 126 mg/dl (70-220); MAGNESIUM 1.7 mg/dl (1.7-2.5); PHOSPHORUS 4.6 mg/dl (2.5-4.9); POTASSIUM 4.6 mmol/L (3.5-5.1); SODIUM 135 mmol/L (135-144)
[2019-04-21] MEDS: ZINC SULFATE 220 MG CAP GTB (09:19)
[2019-04-21] MEDS: FOLIC ACID 1 MG TAB GTB (09:19)
[2019-04-21] MEDS: DOCUSATE SODIUM 10 MG/ML (10ML CUP) GTB (09:19)
[2019-04-21] MEDS: L ACIDOPHIL/B LACTIS/B LONGUM CAPSULE GTB ×2 (09:19→22:10)
[2019-04-21] MEDS: ASCORBIC ACID 250 MG TAB GTB (09:20)
[2019-04-21] MEDS: HYDROXYCHLOROQUINE 200 MG TAB GTB ×2 (09:20→22:10)
[2019-04-21] MEDS: SERTRALINE 50 MG TAB GTB (09:20)
[2019-04-21] MEDS: HYDROCORTISONE 20 MG TAB GTB (09:20)
[2019-04-21] MEDS: FLUCONAZOLE 100 MG TAB PO (09:20)
[2019-04-21] MEDS: LIDOCAINE 5% PATCH TD (09:22)
[2019-04-21] MEDS: NYSTATIN SUSP 5 ML CUP GTB ×4 (09:27→22:10)
[2019-04-21] MEDS: MUPIROCIN 2% 22 GM OINT TOP ×2 (09:37→22:11)
[2019-04-21] MEDS: BALSAM PERU/CASTOR OIL 60 GM TUBE TOP ×2 (09:37→22:11)
[2019-04-21] MEDS: NYSTATIN 30 GM POWDER BTL TOP ×2 (09:37→22:11)
[2019-04-21] MEDS: COLISTIMETHATE (25 MG/ML INHAL SYG) NEB ×2 (09:50→19:52)
[2019-04-21 10:13] LABS: ABNORMAL IP MESSAGE 1; HEMATOCRIT 26.8 % (37.0-47.0); HEMOGLOBIN 8.2 g/dl (12.0-16.0); MEAN CORPUSCULAR HEMOGLOBIN 30.7 pg (29.0-33.0); MEAN CORPUSCULAR HGB CONC 30.6 g/dl (32.0-37.0); MEAN CORPUSCULAR VOLUME 100.4 fl (82.0-101.0); MEAN PLATELET VOLUME 9.7 fl (7.4-10.4); NUCLEATED RED BLOOD CELLS% 0.2 /100WBC (0.0-0.0); PLATELET COUNT 149 10^3/UL (140-415); RED BLOOD COUNT 2.67 10^6/ul (4.20-5.40); RED CELL DISTRIBUTION WIDTH 20.4 % (11.5-14.5)
[2019-04-21 10:15] LABS: ADD MAN DIFF? YES; POSITIVE DIFF @See below
[2019-04-21 10:46] LABS: ANISOCYTOSIS 2+ (0-0); BAND NEUTROPHILS #M 0.1 10^3/ul (0.0-0.6); BAND NEUTROPHILS % (M) 1 % (0-4); BURR CELLS 2+ (0-0); LYMPHOCYTES #M 2.1 10^3/ul (0.8-2.9); LYMPHOCYTES % (M) 21 % (15-51); MICROCYTOSIS 1+ (0-0); MONOCYTE #M 0.5 10^3/ul (0.3-0.9); MONOCYTES % (M) 5 % (0-11); MYELOCYTES #M 0.6 10^3/ul (0.0-0.0); MYELOCYTES % (M) 6 % (0-0); OVALOCYTES 1+ (0-0); PLATELET ESTIMATE NORMAL; POIKILOCYTOSIS 2+ (0-0); POLYCHROMASIA 3+ (0-0); PROMYELOCYTES #M 0.1 10^3/ul (0-0); PROMYELOCYTES % (M) 1 % (0-0); REACTIVE LYMPHOCYTES #M 0.3 10^3/ul (0.0-0.0); REACTIVE LYMPHOCYTES% (M) 3 % (0-0); SEG NEUT #M 6.3 10^3/ul (1.6-7.5); SEGMENTED NEUTROPHILS (M) % 63 % (39-77); SMUDGE%M 15 % (0-0)
[2019-04-21] MEDS: LORAZEPAM 2 MG INJ IV (11:45)
[2019-04-21] MEDS: VANCOMYCIN HCL 1.5 GM in SOD CHLORIDE 0.9% 250 ML IVPB (12:15)
[2019-04-21] MEDS: traMADol 50 MG TAB PO (12:22)
[2019-04-21] MEDS: ALBUTEROL/IPRATROPIUM (NEB) 3 ML AMP HHN (14:59)
[2019-04-21] MEDS: ATORVASTATIN 40 MG TAB GTB (22:10)
[2019-04-21] MEDS: HYDROCORTISONE 5 MG TAB GTB (22:10)
[2019-04-22] MEDS: DOCUSATE SODIUM 10 MG/ML (10ML CUP) GTB ×2 (00:59→09:45)
[2019-04-22] MEDS: VANCOMYCIN HCL 250 MG/5ML POSYG GTB ×4 (01:00→16:18)
[2019-04-22] MEDS: INSULIN ASPART [NOVOLOG] 3 ML PEN SC ×5 (01:00→17:04)
[2019-04-22] MEDS: LANSOPRAZOLE 30 MG CAP GTB ×2 (05:15→16:18)
[2019-04-22] MEDS: GABAPENTIN (50 MG/ML PO SYG) GTB ×2 (05:17→13:22)
[2019-04-22 08:50] LABS: WHITE BLOOD COUNT 9.9 10^3/ul (4.8-10.8)
[2019-04-22 08:50] LABS: ABNORMAL IP MESSAGE 1; HEMATOCRIT 25.2 % (37.0-47.0); HEMOGLOBIN 7.9 g/dl (12.0-16.0); MEAN CORPUSCULAR HEMOGLOBIN 31.5 pg (29.0-33.0); MEAN CORPUSCULAR HGB CONC 31.3 g/dl (32.0-37.0); MEAN CORPUSCULAR VOLUME 100.4 fl (82.0-101.0); MEAN PLATELET VOLUME 9.8 fl (7.4-10.4); NUCLEATED RED BLOOD CELLS% 0.4 /100WBC (0.0-0.0); PLATELET COUNT 171 10^3/UL (140-415); RED BLOOD COUNT 2.51 10^6/ul (4.20-5.40); RED CELL DISTRIBUTION WIDTH 20.7 % (11.5-14.5); RETICULOCYTE COUNT # 0.182 X10^6 (0.020-0.110); RETICULOCYTE COUNT % 7.2 % (0.5-1.5); RETICULOCYTE RBC 2.51
[2019-04-22 08:55] LABS: ADD MAN DIFF? YES; POSITIVE DIFF @See below
[2019-04-22] MEDS: ZINC SULFATE 220 MG CAP GTB (09:45)
[2019-04-22] MEDS: HYDROXYCHLOROQUINE 200 MG TAB GTB (09:45)
[2019-04-22] MEDS: FOLIC ACID 1 MG TAB GTB (09:45)
[2019-04-22] MEDS: ASCORBIC ACID 250 MG TAB GTB (09:45)
[2019-04-22] MEDS: SERTRALINE 50 MG TAB GTB (09:45)
[2019-04-22] MEDS: HYDROCORTISONE 20 MG TAB GTB (09:45)
[2019-04-22] MEDS: FLUCONAZOLE 100 MG TAB PO (09:45)
[2019-04-22] MEDS: NYSTATIN SUSP 5 ML CUP GTB ×3 (09:45→16:16)
[2019-04-22] MEDS: LIDOCAINE 5% PATCH TD (09:46)
[2019-04-22] MEDS: L ACIDOPHIL/B LACTIS/B LONGUM CAPSULE GTB (09:46)
[2019-04-22] MEDS: BALSAM PERU/CASTOR OIL 60 GM TUBE TOP (09:46)
[2019-04-22] MEDS: MUPIROCIN 2% 22 GM OINT TOP (09:46)
[2019-04-22] MEDS: NYSTATIN 30 GM POWDER BTL TOP (09:46)
[2019-04-22] MEDS: COLISTIMETHATE (25 MG/ML INHAL SYG) NEB (09:59)
[2019-04-22 10:23] LABS: ANISOCYTOSIS 2+ (0-0); BAND NEUTROPHILS #M 0.5 10^3/ul (0.0-0.6); BAND NEUTROPHILS % (M) 6 % (0-4); BURR CELLS 1+ (0-0); GIANT THROMBO% (M) 1 % (0-0); LYMPHOCYTES #M 2.9 10^3/ul (0.8-2.9); LYMPHOCYTES % (M) 30 % (15-51); METAMYELOCYTES #M 0.2 10^3/ul (0.0-0.0); METAMYELOCYTES %M 3 % (0-0); MICROCYTOSIS 1+ (0-0); MONOCYTES % (M) 11 % (0-11); MYELOCYTES #M 0.1 10^3/ul (0.0-0.0); MYELOCYTES % (M) 2 % (0-0); PLATELET ESTIMATE NORMAL; POIKILOCYTOSIS 2+ (0-0); POLYCHROMASIA 3+ (0-0); REACTIVE LYMPHOCYTES #M 0.2 10^3/ul (0.0-0.0); REACTIVE LYMPHOCYTES% (M) 3 % (0-0); SEG NEUT #M 4.5 10^3/ul (1.6-7.5); SEGMENTED NEUTROPHILS (M) % 45 % (39-77); SMUDGE%M 6 % (0-0)
[2019-04-22] MEDS: EPOETIN ALFA-EPBX (NON-ESRD 10,000 UNIT/ML VIAL SC (16:18)
[2019-04-22 22:49] LABS: ERYTHROPOIETIN 25.7 mIU/mL (2.6-18.5)
== END 2019-04-22 18:02 | DRG 870 ==
LOC: 6WM 04-20 04:05 → ICU 11:15
PROC: 5A1955Z Respiratory Ventilation, Greater than 96 Consecutive Hours (ICD-10-PCS; principal; 2019-04-12)
PROC: 0B21XFZ Change Tracheostomy Device in Trachea, External Approach (ICD-10-PCS; 2019-04-18)
DX: A41.9 Sepsis, unspecified organism (principal); J96.01 Acute respiratory failure with hypoxia; I63.312 Cerebral infarction due to thrombosis of left middle cerebral artery; I61.9 Nontraumatic intracerebral hemorrhage, unspecified; I63.81 Other cerebral infarction due to occlusion or stenosis of small artery; J96.02 Acute respiratory failure with hypercapnia; J18.9 Pneumonia, unspecified organism; I97.820 Postprocedural cerebrovascular infarction following cardiac surgery; Z99.11 Dependence on respirator [ventilator] status; A04.72 Enterocolitis due to Clostridium difficile, not specified as recurrent; E27.1 Primary adrenocortical insufficiency; G93.40 Encephalopathy, unspecified; G81.91 Hemiplegia, unspecified affecting right dominant side; I50.32 Chronic diastolic (congestive) heart failure; J95.03 Malfunction of tracheostomy stoma; N18.4 Chronic kidney disease, stage 4 (severe); N17.9 Acute kidney failure, unspecified; N39.0 Urinary tract infection, site not specified; R65.20 Severe sepsis without septic shock; D64.9 Anemia, unspecified; D69.6 Thrombocytopenia, unspecified; E11.8 Type 2 diabetes mellitus with unspecified complications; E66.01 Morbid (severe) obesity due to excess calories; E78.5 Hyperlipidemia, unspecified; E87.5 Hyperkalemia; I95.9 Hypotension, unspecified; I35.8 Other nonrheumatic aortic valve disorders; J40 Bronchitis, not specified as acute or chronic; M06.9 Rheumatoid arthritis, unspecified; R13.10 Dysphagia, unspecified; Y83.8 Other surgical procedures as the cause of abnormal reaction of the patient, or of later complication, without mention of misadventure at the time of the procedure; Z22.322 Carrier or suspected carrier of Methicillin resistant Staphylococcus aureus; Z68.39 Body mass index [BMI] 39.0-39.9, adult; Z93.1 Gastrostomy status; Z93.0 Tracheostomy status; Z95.2 Presence of prosthetic heart valve; Z79.4 Long term (current) use of insulin; Z79.52 Long term (current) use of systemic steroids
CPT/HCPCS: 36600; 70450; 71045; 80048; 80202; 81001; 82247; 82248; 82668; 82728; 82803; 82962; 83010; 83036; 83540; 83605; 83615; 83735; 84100; 84155; 84300; 85025; 85045; 85384; 85610; 85730; 87040-91; 87081; 89190; 93306; 93971; 94002; 94003; 94640; 94664

== ENCOUNTER 2019-05-17 20:32 | Inpatient (IN) | payer MEDICARE, OTHER ==
[2019-05-17 21:20] LABS: ADD MAN DIFF? NO
[2019-05-17 21:21] LABS: WHITE BLOOD COUNT 7.3 10^3/ul (4.8-10.8)
[2019-05-17 21:21] LABS: ABNORMAL IP MESSAGE 1; BASOPHILS % 0.4 % (0.0-2.0); EOSINOPHILS # 0.2 10^3/ul (0.0-0.5); EOSINOPHILS % 2.1 % (0.0-7.0); HEMATOCRIT 37.3 % (37.0-47.0); HEMOGLOBIN 11.5 g/dl (12.0-16.0); LYMPHOCYTES # 2.9 10^3/ul (0.8-2.9); LYMPHOCYTES % 39.9 % (15.0-51.0); MEAN CORPUSCULAR HEMOGLOBIN 30.4 pg (29.0-33.0); MEAN CORPUSCULAR HGB CONC 30.8 g/dl (32.0-37.0); MEAN CORPUSCULAR VOLUME 98.7 fl (82.0-101.0); MEAN PLATELET VOLUME 10.5 fl (7.4-10.4); MONOCYTE # 0.4 10^3/ul (0.3-0.9); NEUTROPHIL # 3.7 10^3/ul (1.6-7.5); NEUTROPHILS % 51.1 % (39.0-77.0); RED BLOOD COUNT 3.78 10^6/ul (4.20-5.40); RED CELL DISTRIBUTION WIDTH 15.9 % (11.5-14.5)
[2019-05-17 21:38] LABS: PLATELET COUNT 65 10^3/UL (140-415); POSITIVE DIFF @See below
[2019-05-17 21:40] LABS: ALANINE AMINOTRANSFERASE 13 IU/L (13-69); ALBUMIN 3.3 g/dl (3.3-4.9); ALBUMIN/GLOBULIN RATIO 0.86; ALKALINE PHOSPHATASE 54 IU/L (42-121); ANION GAP 8 (5-13); ASPARTATE AMINO TRANSFERASE 18 IU/L (15-46); BILIRUBIN,INDIRECT 0.6 mg/dl (0-1.1); BILIRUBIN,TOTAL 0.6 mg/dl (0.2-1.3); BLOOD UREA NITROGEN 42 mg/dl (7-20); CARBON DIOXIDE 31 mmol/L (21-31); CHLORIDE 100 mmol/L (97-110); CREATININE 1.08 mg/dl (0.44-1.00); GLUCOSE 92 mg/dl (70-220); LIPASE 63 U/L (23-300); POTASSIUM 4.4 mmol/L (3.5-5.1); SODIUM 139 mmol/L (135-144); TOTAL PROTEIN 7.1 g/dl (6.1-8.1)
[2019-05-17 21:47] LABS: ADD UMIC YES; UR AMORPHOUS CRYSTAL FEW /HPF (NONE SEEN); UR ASCORBIC ACID 40 mg/dL (NEGATIVE); UR BACTERIA MANY /HPF (NONE SEEN); UR BILIRUBIN (Dip) NEGATIVE (NEGATIVE); UR BLOOD (Dip) NEGATIVE (NEGATIVE); UR CLARITY CLOUDY (CLEAR); UR COLOR YELLOW (YELLOW); UR GLUCOSE (Dip) NEGATIVE (NEGATIVE); UR KETONES (Dip) NEGATIVE (NEGATIVE); UR LEUKOCYTE ESTERASE (Dip) 3+ Leu/ul (NEGATIVE); UR MUCUS FEW /HPF (NONE SEEN); UR NITRITE (Dip) NEGATIVE (NEGATIVE); UR RBC 35 /HPF (0-5); UR SQUAMOUS EPITHELIAL CELL FEW /HPF (FEW); UR TOTAL PROTEIN (Dip) 1+ mg/dl (NEGATIVE); UR UROBILINOGEN (Dip) NEGATIVE (NEGATIVE); UR WBC > 182 /HPF (0-5)
[2019-05-17 21:52] LABS: TROPONIN-I 0.025 ng/ml (0.000-0.120)
[2019-05-17] MEDS: SOD CHLORIDE 0.9% 1,000 ML IV (21:52)
[2019-05-17] MEDS: CEFEPIME 1GM/50 ML (PMX) 50 ML IVPB (21:52)
[2019-05-18] MEDS ORDERED: GLUCOSE GEL 15 GRAM TUBE PO ×2 (07:30)
[2019-05-18] MEDS ORDERED: GLUCOSE GEL 15 GRAM TUBE BUCCAL (07:30)
[2019-05-18] MEDS ORDERED: DEXTROSE 50% 50 ML SYRINGE IV ×2 (07:30)
[2019-05-18] MEDS ORDERED: GLUCAGON 1 MG INJ IM (07:30)
[2019-05-18] MEDS ORDERED: INSULIN ASPART [NOVOLOG] 3 ML PEN SC ×2 (07:55)
[2019-05-18] MEDS: MAGNESIUM HYDROXIDE 30ML CUP GTB (08:57)
[2019-05-18] MEDS: DOCUSATE SODIUM 10 MG/ML (10ML CUP) GTB ×2 (08:57→20:38)
[2019-05-18] MEDS: DULOXETINE 30 MG CAP DR PO (08:57)
[2019-05-18] MEDS: FOLIC ACID 1 MG TAB PO (08:58)
[2019-05-18] MEDS: GABAPENTIN 300 MG CAP PO ×3 (08:58→20:38)
[2019-05-18] MEDS: HYDROCORTISONE 20 MG TAB GTB (08:58)
[2019-05-18] MEDS: LANSOPRAZOLE 30 MG CAP GTB ×2 (08:58→20:38)
[2019-05-18] MEDS: HYDROXYCHLOROQUINE 200 MG TAB PO ×2 (08:58→20:38)
[2019-05-18] MEDS: clonAZEPAM 0.5 MG TAB PO ×3 (08:59→20:38)
[2019-05-18] MEDS: SERTRALINE 50 MG TAB PO (08:59)
[2019-05-18] MEDS: Insulin NOVOLOG SS MILD Algorithm (NPO/TPN/ENTERAL FEEDS) SC ×3 (11:32→23:44)
[2019-05-18] MEDS: LEVOFLOXACIN 500MG/D5W (PMX) 100 ML IVPB (12:07)
[2019-05-18 14:58] LABS: ADD MAN DIFF? NO
[2019-05-18 15:10] LABS: BASOPHILS % 0.4 % (0.0-2.0); EOSINOPHILS # 0.1 10^3/ul (0.0-0.5); EOSINOPHILS % 1.1 % (0.0-7.0); HEMATOCRIT 36.4 % (37.0-47.0); HEMOGLOBIN 11.5 g/dl (12.0-16.0); LYMPHOCYTES # 2.3 10^3/ul (0.8-2.9); LYMPHOCYTES % 28.8 % (15.0-51.0); MEAN CORPUSCULAR HEMOGLOBIN 30.9 pg (29.0-33.0); MEAN CORPUSCULAR HGB CONC 31.6 g/dl (32.0-37.0); MEAN CORPUSCULAR VOLUME 97.8 fl (82.0-101.0); MEAN PLATELET VOLUME 10.7 fl (7.4-10.4); MONOCYTE # 0.3 10^3/ul (0.3-0.9); MONOCYTES % 4.2 % (0.0-11.0); NEUTROPHIL # 5.1 10^3/ul (1.6-7.5); NEUTROPHILS % 64.9 % (39.0-77.0); PLATELET COUNT 108 10^3/UL (140-415); RED BLOOD COUNT 3.72 10^6/ul (4.20-5.40); RED CELL DISTRIBUTION WIDTH 15.9 % (11.5-14.5)
[2019-05-18 15:10] LABS: WHITE BLOOD COUNT 7.9 10^3/ul (4.8-10.8)
[2019-05-18 15:21] LABS: ANION GAP 6 (5-13); BLOOD UREA NITROGEN 37 mg/dl (7-20); CARBON DIOXIDE 29 mmol/L (21-31); CHLORIDE 104 mmol/L (97-110); CREATININE 1.12 mg/dl (0.44-1.00); GLUCOSE 139 mg/dl (70-220); POTASSIUM 4.6 mmol/L (3.5-5.1); SODIUM 139 mmol/L (135-144)
[2019-05-18] MEDS: ATORVASTATIN 40 MG TAB PO (20:38)
[2019-05-18] MEDS: CEFEPIME 1GM/50 ML (PMX) 50 ML IVPB (20:38)
[2019-05-18] MEDS: INSULIN GLARGINE [LANTus] (100 UNITS/ML) SYG SC (21:00)
[2019-05-19] MEDS: Insulin NOVOLOG SS MILD Algorithm (NPO/TPN/ENTERAL FEEDS) SC ×4 (05:25→23:32)
[2019-05-19 06:24] LABS: ADD MAN DIFF? NO
[2019-05-19 06:30] LABS: WHITE BLOOD COUNT 8.3 10^3/ul (4.8-10.8)
[2019-05-19 06:30] LABS: BASOPHILS % 0.2 % (0.0-2.0); EOSINOPHILS # 0.1 10^3/ul (0.0-0.5); EOSINOPHILS % 1.6 % (0.0-7.0); HEMOGLOBIN 10.7 g/dl (12.0-16.0); LYMPHOCYTES # 2.1 10^3/ul (0.8-2.9); MEAN CORPUSCULAR HEMOGLOBIN 30.5 pg (29.0-33.0); MEAN CORPUSCULAR HGB CONC 31.5 g/dl (32.0-37.0); MEAN CORPUSCULAR VOLUME 96.9 fl (82.0-101.0); MEAN PLATELET VOLUME 10.7 fl (7.4-10.4); MONOCYTE # 0.5 10^3/ul (0.3-0.9); MONOCYTES % 6.4 % (0.0-11.0); NEUTROPHIL # 5.5 10^3/ul (1.6-7.5); NEUTROPHILS % 66.1 % (39.0-77.0); PLATELET COUNT 116 10^3/UL (140-415); RED BLOOD COUNT 3.51 10^6/ul (4.20-5.40); RED CELL DISTRIBUTION WIDTH 15.9 % (11.5-14.5)
[2019-05-19 07:07] LABS: ANION GAP 7 (5-13); BLOOD UREA NITROGEN 33 mg/dl (7-20); CALCIUM 8.8 mg/dl (8.4-10.2); CARBON DIOXIDE 29 mmol/L (21-31); CHLORIDE 103 mmol/L (97-110); CREATININE 1.03 mg/dl (0.44-1.00); GLUCOSE 101 mg/dl (70-220); MAGNESIUM 1.9 mg/dl (1.7-2.5); PHOSPHORUS 3.6 mg/dl (2.5-4.9); POTASSIUM 3.9 mmol/L (3.5-5.1); SODIUM 139 mmol/L (135-144)
[2019-05-19] MEDS: DOCUSATE SODIUM 10 MG/ML (10ML CUP) GTB ×2 (08:59→20:39)
[2019-05-19] MEDS: MAGNESIUM HYDROXIDE 30ML CUP GTB (08:59)
[2019-05-19] MEDS: LANSOPRAZOLE 30 MG CAP GTB ×2 (09:29→20:39)
[2019-05-19] MEDS: clonAZEPAM 0.5 MG TAB PO ×3 (09:29→20:39)
[2019-05-19] MEDS: SERTRALINE 50 MG TAB PO (09:29)
[2019-05-19] MEDS: GABAPENTIN 300 MG CAP PO ×3 (09:29→20:39)
[2019-05-19] MEDS: HYDROCORTISONE 20 MG TAB GTB (09:29)
[2019-05-19] MEDS: DULOXETINE 30 MG CAP DR PO (09:29)
[2019-05-19] MEDS: FOLIC ACID 1 MG TAB PO (09:30)
[2019-05-19] MEDS: HYDROXYCHLOROQUINE 200 MG TAB PO ×2 (09:30→20:39)
[2019-05-19] MEDS: CEFEPIME 1GM/50 ML (PMX) 50 ML IVPB ×2 (09:30→20:39)
[2019-05-19] MEDS: LEVOFLOXACIN 500MG/D5W (PMX) 100 ML IVPB (11:43)
[2019-05-19] MEDS: ATORVASTATIN 40 MG TAB PO (20:39)
[2019-05-19] MEDS: INSULIN GLARGINE [LANTus] (100 UNITS/ML) SYG SC (20:46)
[2019-05-20] MEDS: Insulin NOVOLOG SS MILD Algorithm (NPO/TPN/ENTERAL FEEDS) SC ×4 (05:38→23:52)
[2019-05-20 08:35] LABS: ADD MAN DIFF? NO
[2019-05-20] MEDS: DOCUSATE SODIUM 10 MG/ML (10ML CUP) GTB ×2 (08:35→20:21)
[2019-05-20] MEDS: MAGNESIUM HYDROXIDE 30ML CUP GTB (08:35)
[2019-05-20] MEDS: CEFEPIME 1GM/50 ML (PMX) 50 ML IVPB ×2 (08:51→20:21)
[2019-05-20] MEDS: DULOXETINE 30 MG CAP DR PO (08:51)
[2019-05-20] MEDS: GABAPENTIN 300 MG CAP PO ×3 (08:51→20:21)
[2019-05-20] MEDS: HYDROCORTISONE 20 MG TAB GTB (08:51)
[2019-05-20] MEDS: FOLIC ACID 1 MG TAB PO (08:51)
[2019-05-20] MEDS: clonAZEPAM 0.5 MG TAB PO ×3 (08:51→20:21)
[2019-05-20] MEDS: HYDROXYCHLOROQUINE 200 MG TAB PO ×2 (08:51→20:21)
[2019-05-20] MEDS: SERTRALINE 50 MG TAB PO (08:56)
[2019-05-20] MEDS: LANSOPRAZOLE 30 MG CAP GTB ×2 (08:56→20:21)
[2019-05-20] MEDS ORDERED: EPOETIN 10000 UNITS/1 ML INJ (ESRD) SC (09:00)
[2019-05-20 09:02] LABS: ANION GAP 8 (5-13); BLOOD UREA NITROGEN 34 mg/dl (7-20); CALCIUM 9.3 mg/dl (8.4-10.2); CARBON DIOXIDE 29 mmol/L (21-31); CHLORIDE 102 mmol/L (97-110); CREATININE 1.09 mg/dl (0.44-1.00); GLUCOSE 99 mg/dl (70-220); PHOSPHORUS 3.7 mg/dl (2.5-4.9); POTASSIUM 4.1 mmol/L (3.5-5.1); SODIUM 139 mmol/L (135-144)
[2019-05-20] MEDS: ACETAMINOPHEN 325 MG TAB GTB (11:17)
[2019-05-20] MEDS: LEVOFLOXACIN 500MG/D5W (PMX) 100 ML IVPB (12:34)
[2019-05-20] MEDS: traMADol 50 MG TAB GTB (12:35)
[2019-05-20 16:24] LABS: BASOPHILS % 0.3 % (0.0-2.0); EOSINOPHILS # 0.1 10^3/ul (0.0-0.5); EOSINOPHILS % 1.1 % (0.0-7.0); HEMATOCRIT 32.9 % (37.0-47.0); HEMOGLOBIN 10.2 g/dl (12.0-16.0); LYMPHOCYTES # 1.9 10^3/ul (0.8-2.9); LYMPHOCYTES % 29.3 % (15.0-51.0); MEAN CORPUSCULAR HEMOGLOBIN 29.9 pg (29.0-33.0); MEAN CORPUSCULAR VOLUME 96.5 fl (82.0-101.0); MEAN PLATELET VOLUME 10.5 fl (7.4-10.4); MONOCYTE # 0.4 10^3/ul (0.3-0.9); NEUTROPHIL # 4.1 10^3/ul (1.6-7.5); NEUTROPHILS % 62.4 % (39.0-77.0); PLATELET COUNT 100 10^3/UL (140-415); RED BLOOD COUNT 3.41 10^6/ul (4.20-5.40); RED CELL DISTRIBUTION WIDTH 15.5 % (11.5-14.5)
[2019-05-20 16:24] LABS: WHITE BLOOD COUNT 6.5 10^3/ul (4.8-10.8)
[2019-05-20] MEDS: EPOETIN ALFA-EPBX (ESRD) 10,000 UNIT/ML VIAL SC (17:51)
[2019-05-20] MEDS: ATORVASTATIN 40 MG TAB PO (20:21)
[2019-05-20] MEDS: INSULIN GLARGINE [LANTus] (100 UNITS/ML) SYG SC (22:09)
[2019-05-21] MEDS: Insulin NOVOLOG SS MILD Algorithm (NPO/TPN/ENTERAL FEEDS) SC ×2 (06:00→12:00)
[2019-05-21] MEDS: MAGNESIUM HYDROXIDE 30ML CUP GTB (08:31)
[2019-05-21] MEDS: HYDROXYCHLOROQUINE 200 MG TAB PO (08:31)
[2019-05-21] MEDS: CEFEPIME 1GM/50 ML (PMX) 50 ML IVPB (08:31)
[2019-05-21] MEDS: HYDROCORTISONE 20 MG TAB GTB (08:31)
[2019-05-21] MEDS: DOCUSATE SODIUM 10 MG/ML (10ML CUP) GTB (08:31)
[2019-05-21] MEDS: FOLIC ACID 1 MG TAB PO (08:31)
[2019-05-21] MEDS: LANSOPRAZOLE 30 MG CAP GTB (08:31)
[2019-05-21] MEDS: GABAPENTIN 300 MG CAP PO ×2 (08:31→12:38)
[2019-05-21] MEDS: SERTRALINE 50 MG TAB PO (08:33)
[2019-05-21] MEDS: clonAZEPAM 0.5 MG TAB PO ×2 (08:33→12:38)
== END 2019-05-21 17:10 | DRG 689 ==
LOC: TEL 22:27 → E/R 20:32
PROC: 5A1945Z Respiratory Ventilation, 24-96 Consecutive Hours (ICD-10-PCS; principal; 2019-05-17)
DX: N39.0 Urinary tract infection, site not specified (principal); J96.20 Acute and chronic respiratory failure, unspecified whether with hypoxia or hypercapnia; G92 Toxic encephalopathy; Z99.11 Dependence on respirator [ventilator] status; I69.951 Hemiplegia and hemiparesis following unspecified cerebrovascular disease affecting right dominant side; E27.1 Primary adrenocortical insufficiency; R65.10 Systemic inflammatory response syndrome (SIRS) of non-infectious origin without acute organ dysfunction; Z68.41 Body mass index [BMI] 40.0-44.9, adult; R25.1 Tremor, unspecified; R13.10 Dysphagia, unspecified; Z93.1 Gastrostomy status; I10 Essential (primary) hypertension; E11.9 Type 2 diabetes mellitus without complications; E86.0 Dehydration; M06.9 Rheumatoid arthritis, unspecified; F32.9 Major depressive disorder, single episode, unspecified; G89.4 Chronic pain syndrome; D63.8 Anemia in other chronic diseases classified elsewhere; E66.01 Morbid (severe) obesity due to excess calories; Z93.0 Tracheostomy status; Z95.2 Presence of prosthetic heart valve
CPT/HCPCS: 36415; 70450; 71045; 80048; 80053; 81001; 82962; 83690; 83735; 84100; 84484; 85025; 87075; 87086; 93005; 94002; 94003; 95819; 96365; 99217; 99285-25; G0378